=== PATIENT | male | born 1965 | race Two or more races ===

== ENCOUNTER → 2019-02-01 | Emergency (ER) | payer OTHER ==
[~2019-02-01] VITALS: Ht 170.2 cm; Wt 88.5 kg
[~2019-02-01] MED LIST: BISOPROLOL FUMAR5 MG; COZAAR50 MG; METOPROLOL SUCC50 MG; PRILOSEC10 MG
== END | disposition home or self-care (01) ==
LOC: ER 17:27 → CPU-OBS 17:51 → ER 17:51
DX: R07.89 Other chest pain (principal)
CPT/HCPCS: G0378; G0379; 93005

== ENCOUNTER 2020-06-08 20:27 | Emergency (ER) | payer OTHER ==
[~2020-06-08] VITALS: Ht 167.6 cm; Wt 86.2 kg
== END 2020-06-08 21:51 | disposition home or self-care (01) ==
LOC: ER 20:27
DX: S41.121A Laceration with foreign body of right upper arm, initial encounter (principal); W45.8XXA Other foreign body or object entering through skin, initial encounter; Y93.89 Activity, other specified; Y92.098 Other place in other non-institutional residence as the place of occurrence of the external cause; Y99.8 Other external cause status